=== PATIENT | female | born 1990 | race African-American/Black ===

== ENCOUNTER 2016-12-17 04:14 | Day surgery (SDC) | payer BC, OTHER ==
[2016-12-17 04:50] VITALS: BMI 42.5
[2016-12-17] MEDS ORDERED: Morphine 10 MG/ML VIAL IM SCH (07:30)
--- NOTE | 2016-12-17 08:25 | PRG ---
DATE OF SERVICE: 12/17/2016 PRIMARY OB: Dr. Suki Boggs CHIEF COMPLAINT: Abdominal pains. HISTORY OF PRESENT ILLNESS: The patient is a 26-year-old G2, P1 female with an intrauterine pregnan cy at 38 weeks and 6 days presenting to Labor and Delivery with uterine contractions that have been persistent since yesterday. She does not report them as severe. Denies any bleeding or leaking flu id. She denies any fever, fall, headache, chest pain, shortness of breath. She denies any complica tions with this . The patient is a business planning manager and she reports that the contractions are an ywhere from 5-15 minutes apart. The patient reports that she was recently [facility] and was 3 cm dilated. PAST MEDICAL HISTORY: Significant for childhood asthma, genital herpes and chlamydia in 2010. ALLERGIES: No known drug allergies. MEDICATIONS: She is on acyclovir and vitamins. PAST SURGICAL HISTORY: She has had a surgery for a kneecap dislocation at age 13 or 14. SOCIAL HISTORY: She does report a history of tobacco use and drinks occasionally before the pregnan cy. Denies any drug use. OB LABS: GC/Chlamydia negative, 1 hour Glucola 84, hepatitis B surface antigen negative, HIV nonrea ctive. She is rubella immune. She is GBS positive, blood type is A positive, antibody screen is ne gative. REVIEW OF SYSTEMS: The patient denies any recent illness, fever, fall, headache, chest pain, shortn ess of breath, nausea, vomiting, diarrhea, constipation. She denies any rashes. She denies any hip or knee problems, any vaginal bleeding, leakage of fluid. PHYSICAL EXAMINATION: VITAL SIGNS: Blood pressure is 137/60, heart rate of 63, respiratory rate of 20, temperature 98.5. GENERAL: She appears to be in no acute distress. She is alert and oriented, and cooperative and pl easant to interact with. HEENT: Head is normocephalic, atraumatic. LUNGS: Clear to auscultation bilaterally. HEART: Regular rate and rhythm. ABDOMEN: Soft and gravid and nontender between contractions. EXTREMITIES: Nontender, nonedematous. CERVICAL EXAM: 3, 75, -3 station, unchanged after 2 hours. heart tracing performed for threatened labor over approximately 35 minutes, baseline is the 13 0s with moderate long-term variability, positive accelerations, no decelerations. Contractions are irregular anywhere from 2-7 minutes. ASSESSMENT AND PLAN: The patient is a 26-year-old G2, P1 female with an intrauterine at 3 8 weeks and 6 days having term contractions, but no evidence of labor. Fetus is reactive on NST, sh e is GBS positive. The patient is being discharged home with 6 mg of morphine IM for pain control a nd has been given term labor precautions.
== END 2016-12-17 07:30 | disposition home or self-care (01) ==
LOC: L&D/OP 04:14
PROVIDERS: ATTEND Family Medicine
DX: O47.1 False labor at or after 37 completed weeks of gestation (principal); O99.513 Diseases of the respiratory system complicating pregnancy, third trimester; J45.909 Unspecified asthma, uncomplicated; Z79.899 Other long term (current) drug therapy; Z86.19 Personal history of other infectious and parasitic diseases; Z87.891 Personal history of nicotine dependence; Z3A.38 38 weeks gestation of pregnancy
CPT/HCPCS: 96372; J2270

== ENCOUNTER 2016-12-18 21:20 | Day surgery (SDC) | payer BC, OTHER ==
[2016-12-18 21:48] VITALS: BP 128/74; TEMP 98.2; BMI 42.5
--- NOTE | 2016-12-19 03:05 | PRG ---
OB ER ENCOUNTER DATE OF SERVICE: 12/18/2016 PRIMARY OB: Dr. Suki Boggs. CHIEF COMPLAINT: Abdominal pains. HISTORY OF PRESENT ILLNESS: The patient is a 26-year-old, G2, P1 female with an intrauterine at 39 weeks and a day, who is presenting to Labor and Delivery with abdominal pains that have worsened today. She reports the pain is began yesterday and is worse with activities such as getting out of the bed, rolling over in bed, climbing stairs. She says that is sharp in nature. The patient also reports that she has been having uterine contractions, but seems to be improving. She denies any leakage of fluid or vaginal bleeding. The patient has presented on 12/17/2016. She denies any other changes in her status since then. Denies fever, fall, headache, chest pain, shortness of breath. PAST MEDICAL HISTORY: Childhood asthma, genital herpes on acyclovir, and chlamydia in 2010. ALLERGIES: No known drug allergies. MEDICATIONS: She is on acyclovir prophylactically for genital herpes, denies any lesions currently and vitamins. PAST SURGICAL HISTORY: She has had surgery for knee dislocation at age 13. SOCIAL HISTORY: Reports history of tobacco use and drinks occasionally before the . Denies any drug use. OB LABS: Blood type is A positive, antibody screen is negative. She is rubella immune. She is GBS positive. Glucola is 84. Hepatitis B surface antigen is negative. HIV is nonreactive, GC and chlamydia were negative. RPR unavailable at this time. REVIEW OF SYSTEMS: Denies any recent illness, fever, fall, headache, chest pain , shortness of breath, nausea, vomiting, diarrhea or constipation. Denies any new rashes, denies hip or knee problems, any vaginal bleeding or leakage of fluid. PHYSICAL EXAMINATION: VITAL SIGNS: Blood pressure is 128/74, pulse of 66, respiratory rate of 18, temperature 98.2. GENERAL: She appears to be in no acute distress. She is alert and oriented, and cooperative and pleasant to interact with. HEENT: Head is normocephalic, atraumatic. LUNGS: Clear to auscultation bilaterally. HEART: Has regular rate and rhythm. ABDOMEN: Gravid, soft with some minimal tenderness. EXTREMITIES: Nontender, nonedematous. GENITOURINARY: Unchanged from yesterday at 3, 60, -2 station. heart tracing performed for threatened labor. Baseline is in the 120s with moderate long-term variability, positive accelerations, no decelerations. She has infrequent contractions on the monitor. Indication is threatened labor ASSESSMENT AND PLAN: 1. The patient is a 26-year-old, G2, P1 female with an intrauterine at 39 weeks, who is present for abdominal pains which seem to be ligamentous in nature. The patient is having irregular contractions not all felt by the patient. Cervix is unchanged. She is GBS positive. The patient has been asked to keep her appointment with her primary OB, Dr. Suki Boggs early next week and has been given term labor precautions. 2. Genital herpes. The patient has been encouraged to take her acyclovir as scheduled in an effort to prevent a herpes outbreak prior to labor. KAYLEN
== END 2016-12-18 22:10 | disposition home or self-care (01) ==
LOC: L&D/OP 21:20
PROVIDERS: ATTEND Family Medicine
DX: O99.89 Other specified diseases and conditions complicating pregnancy, childbirth and the puerperium (principal); R10.9 Unspecified abdominal pain; O99.820 Streptococcus B carrier state complicating pregnancy; O98.313 Other infections with a predominantly sexual mode of transmission complicating pregnancy, third trimester; A60.00 Herpesviral infection of urogenital system, unspecified; Z79.899 Other long term (current) drug therapy; Z3A.39 39 weeks gestation of pregnancy; Z87.891 Personal history of nicotine dependence

== ENCOUNTER 2016-12-27 02:49 | Inpatient (IN) | payer BC, OTHER ==
[2016-12-27 03:17] VITALS: BMI 41.8
[2016-12-27] MEDS ORDERED: Morphine 10 MG/ML VIAL IM SCH (05:30)
[2016-12-27] MEDS ORDERED: Lidocaine 1% (PF) 30 ML VIAL SC PRN (06:42)
[2016-12-27] MEDS ORDERED: Ibuprofen 800 MG TAB PO PRN (06:42)
[2016-12-27] MEDS ORDERED: HYDROcodone/Acetaminophen 5/325 mg Tablet PO PRN ×3 (06:42→14:05)
[2016-12-27] MEDS ORDERED: Ondansetron HCl/PF 4 MG/2 ML Vial IVP PRN ×3 (06:42→18:03)
[2016-12-27] MEDS ORDERED: Lactated Ringer's 1,000 ML IV SCH (06:45)
[2016-12-27] MEDS ORDERED: Penicillin G Potassium 5 MILL.UNITS in Sodium Chloride 0.9% 100 ML IVPB SCH (07:00)
[2016-12-27] MEDS: Lactated Ringer's 1,000 ML IV SCH ×2 (07:48→09:40)
[2016-12-27 07:54] LABS: Mean Platelet Volume 6.7 fL (7.4-10.4); Red Blood Cell (RBC) Count 3.44 mill/uL (4.20-5.40); White Blood Cell (WBC) Count 8.3 thou/uL (4.8-10.8)
[2016-12-27] MEDS ORDERED: Fentanyl 4 mcg/Marc 0.1% Cadd 100 ML ONE (08:58)
[2016-12-27] MEDS ORDERED: Bupivacaine 0.75% W/DEXTROSE 8.25% 2 ML AMP ONE (09:10)
[2016-12-27] MEDS ORDERED: Fentanyl 100 MCG/2 ML VIAL ONE (09:10)
[2016-12-27] MEDS ORDERED: LR 500 ML/Oxytocin 10 units 500 ML ONE (10:28)
[2016-12-27] MEDS ORDERED: LR 500 ML/Oxytocin 10 units 500 ML IVPB SCH (11:00)
[2016-12-27] MEDS ORDERED: Penicillin G 2.5 MILL.units 2.5 MILL.UNITS in Premix Bag 1 BAG IVPB SCH (11:00)
[2016-12-27] MEDS ORDERED: Bicitra 30 ML UDCUP ONE (11:22)
[2016-12-27] MEDS ORDERED: CEFAZOLIN/Water 2 GM/20 ML SYRINGE ONE (11:22)
[2016-12-27] MEDS: LR / Pitocin 40 units/1000 ml 1,000 ML IV PRN ×2 (11:45→13:19)
--- NOTE | 2016-12-27 11:46 | PDOC.EVN ---
Event Note - Event Note Event Note: 12/27/16 at 1135 L&D Room 1 STANDBY: Called to be in room (standby) as Dr Francisco Escoto considered vacuum assisted delivery for decelerations. I arrived to find patient pushing with spontaneous delivery by Dr Boggs at 1139. Vccuum opened and attempted to be placed byt never actually used. I was present in room until baby delivered. NICU in room as well. Baby vigorous. Please see full note by Dr Leida Boggs. Patient has note in chart.
[2016-12-27 12:18] LABS: CO2 Tension (PaCO2) 40.1 mmHg (44.0-56.0)
[2016-12-27 13:36] LABS: Amphetamine Not Detected (NotDetected); Methadone Not Detected (NotDetected); Methamphetamine Not Detected (NotDetected)
[2016-12-27] MEDS ORDERED: CEFAZOLIN/Water 2 GM/20 ML SYRINGE SLOW IVP SCH (13:45)
[2016-12-27] MEDS ORDERED: LR / Pitocin 40 units/1000 ml 1,000 ML IV SCH (14:05)
[2016-12-27] MEDS ORDERED: Acetaminophen/Codeine 30-300mg Tablet PO PRN (14:05)
[2016-12-27] MEDS ORDERED: Benzocaine/Menthol 20-0.5% 60 ML CAN TOP PRN (14:05)
[2016-12-27] MEDS ORDERED: Milk Of Magnesia 30 ML UDCUP PO PRN (14:05)
[2016-12-27] MEDS ORDERED: Ibuprofen 800 MG TAB PO SCH ×2 (14:05→14:30)
[2016-12-27] MEDS ORDERED: Preparation H Ointment 28 GM TUBE PR PRN (14:05)
[2016-12-27] MEDS ORDERED: Lanolin Ointment 7 GM TUBE TOP PRN (14:05)
[2016-12-27] MEDS ORDERED: diphenhydrAMINE 25 MG CAP PO PRN (14:05)
[2016-12-27] MEDS ORDERED: Bisacodyl 10 MG SUPP PR PRN (14:05)
[2016-12-27] MEDS: Ferrous Sulfate 325 MG TAB PO SCH (15:48)
[2016-12-27] MEDS ORDERED: Bupivacaine 0.75% W/DEXTROSE 8.25% 2 ML AMP NERVE BLCK SCH (18:00)
[2016-12-27] MEDS ORDERED: Fentanyl 100 MCG/2 ML VIAL I-THECAL SCH (18:00)
[2016-12-27] MEDS ORDERED: Acetaminophen 325 MG TAB PO PRN (18:03)
[2016-12-27] MEDS ORDERED: Eucerin (Mineral Oil/Petrolatum,White) 30 gm Jar TOP PRN (18:03)
[2016-12-27] MEDS ORDERED: Promethazine HCl 25 MG/ML VIAL IM PRN (18:03)
[2016-12-27] MEDS ORDERED: Lactated Ringer's 500 ML IV PRN (18:03)
[2016-12-27] MEDS ORDERED: Naloxone HCl 0.4 mg/ml Vial IVP PRN ×2 (18:03)
[2016-12-27] MEDS ORDERED: diphenhydrAMINE 50 MG/ML VIAL IVP PRN (18:03)
[2016-12-27] MEDS ORDERED: ePHEDrine/0.9% NaCl/PF SYRINGE 50 mg/10 ml SLOW IVP PRN (18:03)
[2016-12-27] MEDS ORDERED: Fentanyl 4mcg/Marcaine 0.1% Cassette 100 ML EPIDURAL SCH (18:15)
[2016-12-27] MEDS ORDERED: Communication Order-Pharmacy FS SCH (18:15)
[2016-12-27] MEDS: Ibuprofen 800 MG TAB PO SCH (21:32)
[2016-12-27] MEDS: Docusate (Surfak) 240 MG CAP PO SCH (21:32)
[2016-12-28 05:07] LABS: Hematocrit 31.4 % (36.0-47.0); Mean Platelet Volume 6.9 fL (7.4-10.4); Red Blood Cell (RBC) Count 3.34 mill/uL (4.20-5.40); White Blood Cell (WBC) Count 9.4 thou/uL (4.8-10.8)
[2016-12-28] MEDS: Ibuprofen 800 MG TAB PO SCH ×3 (06:00→21:30)
[2016-12-28] MEDS ORDERED: Acetaminophen/Codeine 30-300mg Tablet PO PRN ×2 (06:15)
[2016-12-28] MEDS: Docusate (Surfak) 240 MG CAP PO SCH ×2 (08:48→21:30)
[2016-12-28] MEDS: Prenatal Vitamin 1 TAB PO SCH (08:48)
[2016-12-28] MEDS: Ferrous Sulfate 325 MG TAB PO SCH ×2 (08:49→17:25)
[2016-12-29] MEDS: Ibuprofen 800 MG TAB PO SCH (05:59)
[2016-12-29] MEDS: Prenatal Vitamin 1 TAB PO SCH (08:55)
[2016-12-29] MEDS: Ferrous Sulfate 325 MG TAB PO SCH (08:55)
[2016-12-29] MEDS: Docusate (Surfak) 240 MG CAP PO SCH (08:56)
[2016-12-29 09:36] VITALS: BP 129/80; TEMP 98.4
== END 2016-12-29 12:50 | disposition home or self-care (01) | DRG 775 ==
LOC: L&D/OP 02:49 → L&D 06:59 → 3SW 15:11 → 3SE 12-28 19:29
PROVIDERS: ADMIT Obstetrics & Gynecology; ATTEND Obstetrics & Gynecology
PROC: 10E0XZZ Delivery of Products of Conception, External Approach (ICD-10-PCS; principal; 2016-12-27)
PROC: 10907ZC Drainage of Amniotic Fluid, Therapeutic from Products of Conception, Via Natural or Artificial Opening (ICD-10-PCS; 2016-12-27)
DX: O99.824 Streptococcus B carrier state complicating childbirth (principal); O62.3 Precipitate labor; Z37.0 Single live birth; Z3A.40 40 weeks gestation of pregnancy
CPT/HCPCS: 36415; 80306; 82805; 85027; 86780; 87340; 88307; J2270; J2540; J3010; J3490; J7050; J7120

== ENCOUNTER 2019-01-06 13:25 | Emergency (ER) | payer BC, OTHER | END 2019-01-06 15:25 | disposition home or self-care (01) | LOC: ERS 13:25 | DX: J02.9 Acute pharyngitis, unspecified (principal); J45.909 Unspecified asthma, uncomplicated | CPT/HCPCS: 87081; 87430; 99281 ==

== ENCOUNTER 2019-08-16 11:42 | Inpatient (IN) | payer OTHER ==
[2019-08-16 12:30] VITALS: BMI 46.5
[2019-08-16 13:17] LABS: #Eosinphils 0.1 thou/uL (0.0-0.7); #Lymphocytes 1.5 thou/uL (1.20-3.40); #Monocytes 0.5 thou/uL (0.11-0.59); #Neutrophils 3.4 thou/uL (1.40-6.50); %Basophils 0.5 % (0.0-1.0); %Lymphocytes 26.9 % (21.0-51.0); %Monocytes 8.4 % (0.0-10.0); %Neutrophils 63.3 % (42.0-75.0); Hemoglobin 11.9 g/dL (12.0-16.0); Mean Corpuscular HGB CONC 33.2 g/dL (32.0-36.0); Mean Corpuscular Hemoglobin 30.7 pg (27.0-31.0); Mean Corpuscular Volume 92.5 fL (78.0-98.0); Mean Platelet Volume 7.3 fL (7.4-10.4); Platelet Count 267 thou/uL (130-400); RBC Distribution Width 12.8 % (11.5-14.5); Red Blood Cell (RBC) Count 3.87 mill/uL (4.20-5.40); White Blood Cell (WBC) Count 5.4 thou/uL (4.8-10.8)
[2019-08-16] MEDS ORDERED: hydrALAZINE 20 MG/ML VIAL SLOW IVP PRN ×2 (13:23→16:44)
[2019-08-16 13:39] LABS: ALT (SGPT) 11 U/L (8-55); AST (SGOT) 15 U/L (5-34); Albumin 3.6 g/dL (3.5-5.0); Alkaline Phosphatase 115 U/L (40-110); Anion Gap 11 mmol/L (10-20); BUN (Urea Nitrogen) 5 mg/dL (7.0-18.7); Bilirubin, Total 0.2 mg/dL (0.2-1.2); Calc. Creatinine Clearance 259 mL/min (70-130); Calcium 9.2 mg/dL (7.8-10.44); Carbon Dioxide 22 mmol/L (22-29); Chloride 106 mmol/L (98-107); Estimated GFR-MDRD Greater than 90; Globulin 3.3 g/dL (2.4-3.5); Glucose 70 mg/dL (70-105); Potassium 4.2 mmol/L (3.5-5.1); Protein, Total 6.9 g/dL (6.0-8.3); Sodium 135 mmol/L (136-145)
--- NOTE | 2019-08-16 14:06 | PRG ---
DATE OF SERVICE: 08/16/2019 PRIMARY OB: Dr. Anabella Baxter. CHIEF COMPLAINT: Elevated blood pressure. HISTORY OF PRESENT ILLNESS: The patient is a 29-year-old G3, P2 female with an intrauterine at 37 weeks today. She was seen by Dr. Baxter, her primary care physician at a routine clinic visit. During her visit there, she was noted to have some elevated blood pressures up into the 150s and was sent here to Labor and Delivery for further evaluation. The patient denies headache, fever, chest pain , shortness of breath. She has had some nausea. Denies vomiting. Denies diarrhea or constipation. Denies abdominal pains. Denies any new rashes. Denies hip problems, knee problems, muscle weakness. Denies vaginal bleeding or leakage of fluid, urinary urgency or frequency. PAST MEDICAL HISTORY: The patient denies. PAST SURGICAL HISTORY: Knee surgery. ALLERGIES: NO KNOWN DRUG ALLERGIES. MEDICATIONS: vitamins. In reviewing her medical history, the patient is noted to have a history of genital herpes and is currently on valacyclovir. SOCIAL HISTORY: Denies drug, alcohol, tobacco use. OB LABS: Blood type is A positive. Antibody screen is negative. RPR is nonreactive. HIV is nonreactive. She is rubella immune and is GBS negative. REVIEW OF SYSTEMS: Per HPI. PHYSICAL EXAMINATION: VITAL SIGNS: Here has blood pressure in the 130s over 60s primarily. She has one 144/68 over the course of 1 hour. Heart rate of 80, saturating 96% to 98% on room air. GENERAL: She appears to be in no acute distress. She is alert, oriented, cooperative, and pleasant to interact with. HEAD: Normocephalic, atraumatic. LUNGS: Clear to auscultation bilaterally. HEART: Has a regular rate and rhythm. ABDOMEN: Gravid, soft, nontender. EXTREMITIES: Nontender, nonedematous. DTRs are difficult to elicit. PELVIS: Cervical exam has been deferred. Baseline is noted to be on heart tracing in the 140s with moderate long-term variability, positive 15 x 15 accelerations. Tocometer showing possibly some irritability, but no regular contraction pattern. ASSESSMENT AND PLAN: The patient is a 29-year-old G3, P2 female with an intrauterine at 37 weeks, here for a PIH workup. The patient has no symptomatology at this time. We are waiting on labs to return, specifically CMP , uric acid, CBC, and urine protein to creatinine ratio. In the meantime, we will continue blood pressure monitoring and monitoring. Pt continued to have mild range pressures. She was admitted to Dr Baxter for management of IOL due to PI Job ID: [id number] [facility]
[2019-08-16] MEDS ORDERED: Lidocaine 1% (PF) 30 ML VIAL SC PRN (16:44)
[2019-08-16] MEDS ORDERED: Ondansetron PF 4 MG/2 ML Vial IVP PRN (16:44)
[2019-08-16] MEDS ORDERED: HYDROcodone/Acetaminophen 5/325 mg Tablet PO PRN (16:44)
[2019-08-16] MEDS ORDERED: NS / Oxytocin 40 units/1000ml 1,000 ML IV PRN (16:44)
[2019-08-16] MEDS ORDERED: Ibuprofen 800 MG TAB PO PRN (16:44)
[2019-08-16] MEDS ORDERED: Lactated Ringer's 1,000 ML IV SCH (16:45)
[2019-08-16] MEDS ORDERED: NS w/ Oxytocin 10 units 500 ML IV SCH (17:00)
[2019-08-16 18:15] LABS: Hemoglobin 12.4 g/dL (12.0-16.0); Mean Corpuscular HGB CONC 33.1 g/dL (32.0-36.0); Mean Corpuscular Hemoglobin 30.8 pg (27.0-31.0); Mean Corpuscular Volume 93.1 fL (78.0-98.0); Mean Platelet Volume 7.3 fL (7.4-10.4); Platelet Count 268 thou/uL (130-400); Red Blood Cell (RBC) Count 4.01 mill/uL (4.20-5.40); White Blood Cell (WBC) Count 5.6 thou/uL (4.8-10.8)
[2019-08-16 18:54] LABS: HBSAg Index 0.14 S/CO (0-0.99); Hep B Surf Ag Non-Reactive S/CO (NonReactive)
[2019-08-16 18:58] LABS: Syphilis Antibody Nonreactive (Nonreactive); Syphilis Antibody Index 0.09 S/CO (<1.00 Non-Reactive)
[2019-08-17] MEDS: Lactated Ringer's 1,000 ML IV SCH ×3 (01:42→14:00)
--- NOTE | 2019-08-17 09:48 | PDOC.LDPN ---
Labor & Delivery Progress Note - Subjective Subjective: comfortable - Objective Vital signs reviewed and normal: yes General: NAD Uterine fundus: non tender Dilation: 4 Effacement: 50% Station: -2 FHT: category 1 [place] contractions every: 3-4min AROM: clear fluid Plan: labor augmentation
[2019-08-17] MEDS ORDERED: Terbutaline Sulfate 1 MG/ML VIAL ONE (10:18)
[2019-08-17] MEDS ORDERED: Bicitra 30 ML UDCUP ONE (10:28)
[2019-08-17] MEDS ORDERED: Fentanyl 100 MCG/2 ML VIAL ONE (10:29)
[2019-08-17] MEDS ORDERED: MORPHINE 5 MG/10 ML PF VIAL ONE (10:29)
[2019-08-17] MEDS ORDERED: Ondansetron PF 4 MG/2 ML Vial ONE (10:30)
[2019-08-17] MEDS ORDERED: Dexamethasone 20 MG/5 ML VIAL ONE (10:30)
[2019-08-17] MEDS ORDERED: Ketorolac Tromethamine 30 MG/ML VIAL ONE (10:30)
[2019-08-17] MEDS ORDERED: Metoclopramide HCl 10 MG/2 ML VIAL ONE (10:30)
[2019-08-17] MEDS ORDERED: ceFAZolin 1 GM/D5W 1 GM in Premix Bag 1 BAG IVPB SCH (10:45)
[2019-08-17] MEDS ORDERED: CEFAZOLIN 2 GM in Premix Bag 1 BAG IVPB SCH (10:45)
[2019-08-17] MEDS ORDERED: Oxytocin 10 UNITS/ML VIAL ONE ×2 (10:46)
[2019-08-17] MEDS ORDERED: Ondansetron PF 4 MG/2 ML Vial IVP PRN ×2 (11:03→13:11)
[2019-08-17] MEDS ORDERED: L&D-Morphine 4 MG/ML VIAL SLOW IVP PRN (11:03)
[2019-08-17] MEDS ORDERED: Meperidine HCl/PF 25 MG/ML VIAL SLOW IVP PRN (11:03)
[2019-08-17] MEDS ORDERED: HYDROmorphone 2 MG/ML VIAL SLOW IVP PRN (11:03)
[2019-08-17] MEDS ORDERED: Promethazine HCl 25 MG/ML VIAL IM PRN ×2 (11:03→13:11)
[2019-08-17] MEDS ORDERED: Promethazine HCl 25 MG SUPP PR PRN (11:03)
[2019-08-17] MEDS ORDERED: Naloxone HCl 0.4 mg/ml Vial IV PRN (11:03)
[2019-08-17] MEDS ORDERED: Naloxone HCl 0.4 mg/ml Vial IVP PRN ×2 (11:03)
[2019-08-17] MEDS ORDERED: Ondansetron HCl/PF 4 MG/2 ML Vial IVP PRN (11:03)
[2019-08-17] MEDS ORDERED: diphenhydrAMINE 50 MG/ML VIAL IVP PRN (11:03)
[2019-08-17] MEDS ORDERED: Communication Order-Pharmacy FS SCH (11:15)
--- NOTE | 2019-08-17 11:30 | PDOC.LDPN ---
Labor & Delivery Progress Note - Subjective Subjective: painful contractions - Objective Vital signs reviewed and normal: yes General: NAD Uterine fundus: non tender Dilation: 4 Effacement: 50% Station: -2 FHT: category 2 (prolonged decel to 80s x 5min) Other exam findings: sono : transverse back down presentation IUPC placed: yes Resuscitative measures: amniofusion Plan: other (FHT improved to 120-130s, to OR for urgent CS for variable presentation and decels)
--- NOTE | 2019-08-17 11:32 | PDOC.OPDEL ---
OB Operative/Delivery Note Delivery Dr/Surgeon: Vee Assist: [place] Pre-Delivery Diagnosis: non-reassuring tracing (, variable presentation, GHTN) Procedure/Post Delivery Dx: primary low transverse CS Weeks gestation: 37 Anesthesia: spinal - Findings A Sex: female - 1 min: 8 - 5 min: 9 - Additional Findings/Plan Placenta delivered: spontaneous findings: low transverse hysterotomy without extension, normal uterus, normal tubes, normal ovaries Estimated blood loss: 500cc Post delivery plan: routine recovery
[2019-08-17] MEDS ORDERED: Famotidine/PF 20 mg/2ml Vial ONE (12:06)
--- NOTE | 2019-08-17 12:22 | OP ---
DATE OF PROCEDURE: 08/17/2019 ADDENDUM: I was present and scrubbed to assist the uncomplicated urgent low-transverse with Dr. Anabella Baxter. Please see her note for full details. Job ID: [id number]
[2019-08-17] MEDS ORDERED: diphenhydrAMINE 25 MG CAP PO PRN (13:11)
[2019-08-17] MEDS ORDERED: Simethicone Chewable 80 MG TAB PO PRN (13:11)
[2019-08-17] MEDS ORDERED: Bisacodyl 10 MG SUPP PR PRN (13:11)
[2019-08-17] MEDS ORDERED: hydrALAZINE 20 MG/ML VIAL SLOW IVP PRN (13:11)
[2019-08-17] MEDS ORDERED: Adacel (T-DAP) 0.5 ML SYRINGE IM ONE (13:11)
[2019-08-17] MEDS ORDERED: Acetaminophen 325 MG TAB PO PRN (13:11)
[2019-08-17] MEDS ORDERED: Lanolin Ointment 7 GM TUBE TOP PRN (13:11)
[2019-08-17] MEDS: Ketorolac Tromethamine 30 MG/ML VIAL IVP PRN (19:57)
[2019-08-17] MEDS ORDERED: HYDROcodone/Acetaminophen 5/325 mg Tablet PO PRN (23:15)
[2019-08-18] MEDS: Docusate Calcium (SURFAK) 240 MG CAP PO SCH ×3 (04:24→20:58)
[2019-08-18] MEDS: Ferrous Sulfate 325 MG TAB PO SCH ×2 (04:24→07:50)
[2019-08-18] MEDS ORDERED: Sodium Chloride 0.9% 10 ML ONE (05:24)
[2019-08-18] MEDS: Ketorolac Tromethamine 30 MG/ML VIAL IVP PRN (05:26)
[2019-08-18 07:18] LABS: Mean Corpuscular HGB CONC 32.7 g/dL (32.0-36.0); Mean Corpuscular Hemoglobin 30.7 pg (27.0-31.0); Mean Corpuscular Volume 93.8 fL (78.0-98.0); Mean Platelet Volume 7.4 fL (7.4-10.4); Platelet Count 236 thou/uL (130-400); RBC Distribution Width 12.6 % (11.5-14.5); Red Blood Cell (RBC) Count 3.24 mill/uL (4.20-5.40); White Blood Cell (WBC) Count 9.9 thou/uL (4.8-10.8)
[2019-08-18] MEDS: Prenatal Vitamin 1 TAB PO SCH (09:47)
--- NOTE | 2019-08-18 11:53 | PDOC.PP ---
Post Progress Note Post Day #: 1 PO intake tolerated: yes Flatus: yes Ambulation: yes Vital Signs (12 hours) Temp Pulse Resp BP Pulse Ox 08/18/19 08:00 98.2 F 83 20 128/58 L 100 08/18/19 05:26 98.1 F 69 12 119/69 08/18/19 00:00 98.1 F 63 14 98/52 L Weight Weight 334 lb - Physical Examination General: NAD Respiratory: non-labored breathing Abdominal: no distention, appropriately TTP Fundus firm & at: umb Skin: CS incision dry & intact Neurological: no gross focal deficits Psychiatric: normal affect Result Diagrams: 08/18/19 06:48 08/16/19 13:00 Additional Labs: Post Labs Blood Type A POSITIVE 08/16/19 17:59 Hep Bs Antigen Non-Reactive S/CO (NonReactive) 08/16/19 17:59 - Assessment/Plan POD1 s/p PCS for variable presentation and NRFHT, GHTN at 37w VSSAF Doing well postop, met appropriate milestones. Hgb 10.0, postop acute blood loss anemia, asx, cont iron and PNV Rh pos RImm Cont postop care, home tomorrow
[2019-08-18] MEDS: HYDROcodone/Acetaminophen 5/325 mg Tablet PO PRN (17:31)
[2019-08-18] MEDS: Ibuprofen 800 MG TAB PO SCH (20:58)
[2019-08-19] MEDS: HYDROcodone/Acetaminophen 5/325 mg Tablet PO PRN (02:35)
[2019-08-19] MEDS: Ibuprofen 800 MG TAB PO SCH ×2 (05:42→11:57)
[2019-08-19] MEDS: Ferrous Sulfate 325 MG TAB PO SCH (07:20)
[2019-08-19 08:15] VITALS: BP 121/74; TEMP 98.4
[2019-08-19] MEDS: Docusate Calcium (SURFAK) 240 MG CAP PO SCH (08:17)
[2019-08-19] MEDS: Prenatal Vitamin 1 TAB PO SCH (08:17)
--- NOTE | 2019-08-19 09:19 | PDOC.PP ---
Post Progress Note Post Day #: 2 Subjective: doing well, post op goals met, desires DC home PO intake tolerated: yes Flatus: yes Ambulation: yes Vital Signs (12 hours) Temp Pulse Resp BP Pulse Ox 08/19/19 08:14 98.4 F 70 20 121/74 100 08/19/19 05:41 98.3 F 75 14 108/60 08/19/19 00:03 98.7 F 73 16 127/58 L Weight Weight 334 lb - Physical Examination General: NAD Respiratory: non-labored breathing Abdominal: no distention Skin: CS incision dry & intact, no rash Psychiatric: A&Ox3, normal affect Result Diagrams: 08/18/19 06:48 08/16/19 13:00 Additional Labs: Post Labs Blood Type A POSITIVE 08/16/19 17:59 Hep Bs Antigen Non-Reactive S/CO (NonReactive) 08/16/19 17:59 (1) delivery delivered Code(s): O82 - ENCOUNTER FOR DELIVERY WITHOUT INDICATION Status: Acute - Assessment/Plan POD2 doing well, BP WNL, desires DC home. FU 08/24 scheduled.
[2019-08-22] MEDS ORDERED: Ibuprofen 800 MG TAB PO SCH (22:00)
== END 2019-08-19 12:22 | disposition home or self-care (01) | DRG 787 ==
LOC: L&D/OP 11:42 → L&D 20:00 → 3SW 08-17 13:29
PROVIDERS: ADMIT Student in an Organized Health Care Education/Training Program; ATTEND Student in an Organized Health Care Education/Training Program
PROC: 10D00Z1 Extraction of Products of Conception, Low, Open Approach (ICD-10-PCS; principal; 2019-08-17)
DX: O13.4 Gestational [pregnancy-induced] hypertension without significant proteinuria, complicating childbirth (principal); D62 Acute posthemorrhagic anemia; Z3A.37 37 weeks gestation of pregnancy; Z37.0 Single live birth; O76 Abnormality in fetal heart rate and rhythm complicating labor and delivery; O99.02 Anemia complicating childbirth
CPT/HCPCS: 36415; 80053; 82570; 84156; 84550; 85025; 85027; 86780; 86850; 86900; 86901; 87340; J0690; J1100; J1885; J2274; J2405; J2590; J2765; J3010; J3105; S0028